=== PATIENT | male | born 1970 | race Two or more races ===

== ENCOUNTER 2022-05-23 08:33 | Emergency (ER) | payer BC ==
[~2022-05-23] VITALS: Ht 175.3 cm; Wt 63.5 kg
--- NOTE | 2022-05-23 08:45 | NUR ---
RECEIVED PT 52 YRS MALE CAME FROM HOME C/O GENRALIZED WEEKNESS AFTER DINTALE WORK UP 2 DAY AGO
--- NOTE | 2022-05-23 08:47 | NUR ---
DR THOMPSON AT BEDSIDE FOR EVAL
--- NOTE | 2022-05-23 08:55 | NUR ---
INSERTED ANGO CATHETER G 20 ON RT AC BLOOD DROW AND SENT TO LAB
[2022-05-23] MEDS ORDERED: IV NS 0.9% 1,000 ML IV ONE ×2 (09:00→10:30)
[2022-05-23 09:14] LABS: BASOPHILS % (AUTO) 0.3 % (0.0-2.0); EOSINOPHILS % (AUTO) 0.5 % (0.0-6.0); HEMATOCRIT 45 % (39-51); HEMOGLOBIN 15.3 g/dL (13.5-17.5); LYMPHOCYTES # (AUTO) 1.4 K/uL (0.8-4.8); LYMPHOCYTES % (AUTO) 17.2 % (20.0-44.0); MEAN CORPUSCULAR HGB CONC 34 g/dl (31.0-36.0); MEAN CORPUSCULAR VOLUME 94 fL (80-96); MONOCYTES # (AUTO) 0.9 K/uL (0.1-1.30); MONOCYTES % (AUTO) 11.4 % (2.0-12.0); NEUTROPHILS # (AUTO) 5.8 K/uL (1.8-8.9); NEUTROPHILS % (AUTO) 70.6 % (43.0-81.0); PLATELET COUNT (AUTO) 212 K/uL (150-450); RED BLOOD CELL COUNT(AUTO) 4.74 MIL/uL (4.5-6.0); WHITE BLOOD COUNT (AUTO) 8.2 K/uL (4.3-11.0)
[2022-05-23 09:22] LABS: CALCIUM, SERUM 10.1 mg/dL (8.5-10.1); CREATININE 2.4 mg/dL (0.6-1.3)
--- NOTE | 2022-05-23 09:40 | NUR ---
Henry mullen in [facility] - 05/23/22 at [address] SCAN
[2022-05-23] MEDS ORDERED: IOHEXOL-300 100 ML VIAL IV ONE (09:51)
[2022-05-23] MEDS ORDERED: IV NS 0.9% 250 ML IV ONE (09:51)
--- NOTE | 2022-05-23 09:52 | NUR ---
PT TAKEN TO RADIOLOGY
--- NOTE | 2022-05-23 11:25 | NUR ---
BLOOD DROW ORDER
[2022-05-23 11:56] LABS: CALCIUM, SERUM 8.1 mg/dL (8.5-10.1); POTASSIUM 3.1 mmol/L (3.5-5.1)
[2022-05-23 12:57] LABS: CALCIUM, SERUM 8.1 mg/dL (8.5-10.1); CREATININE 1.9 mg/dL (0.6-1.3); POTASSIUM 3.7 mmol/L (3.5-5.1)
--- NOTE | 2022-05-23 13:29 | NUR ---
AWAITING DIPOSITION OF PATIENT BY .
--- NOTE | 2022-05-23 14:00 | NUR ---
TOLORATED PO INTACK NO N/V RESTING AT THIS TIME
--- NOTE | 2022-05-23 15:30 | NUR ---
AWAITING DIPOSITION OF PATIENT BY .
--- NOTE | 2022-05-23 16:10 | NUR ---
IV removed. Catheter intact and site benign. Pressure and 4x4 applied to site. No bleeding noted.
--- NOTE | 2022-05-23 16:15 | NUR ---
Patient discharged to home in stable condition. Written and verbal after care instructions given. Patient verbalizes understanding of instruction.
[2022-05-23] MEDS ORDERED: CLIN300C12 PO (16:16)
[2022-05-23 16:32] VITALS: BP 134/64
== END 2022-05-23 16:34 | disposition home or self-care (01) ==
LOC: ER 08:42
DX: K04.7 Periapical abscess without sinus (principal); N28.9 Disorder of kidney and ureter, unspecified; E86.0 Dehydration; Z79.899 Other long term (current) drug therapy
CPT/HCPCS: 99285; 96360; 70487; 96361; 85025; 36415; 80048 ×3; J7030 ×2; J7050; Q9967